=== PATIENT | male | born 1990 | race Caucasian/White ===

== ENCOUNTER → 2021-12-30 10:23 | Outpatient (BNVA) | payer OTHER, SELFPAY | PROVIDERS: PCP Internal Medicine; Visit Provider Physician Assistant | DX: M23.91 Unspecified internal derangement of right knee (principal) | CPT/HCPCS: 73564; 99204 ==

== ENCOUNTER → 2022-01-05 13:16 | Outpatient (BNVA) | payer OTHER, SELFPAY | PROVIDERS: PCP Internal Medicine; Visit Provider Physician Assistant | DX: M25.561 Pain in right knee (principal) | CPT/HCPCS: 99213 ==

== ENCOUNTER → 2022-01-11 13:18 | Outpatient (BNVA) | payer OTHER, SELFPAY | PROVIDERS: PCP Internal Medicine; Visit Provider Physician Assistant Medical | DX: M23.91 Unspecified internal derangement of right knee (principal) | CPT/HCPCS: 99213 ==